=== PATIENT | female | born 1980 | race Caucasian/White ===

== ENCOUNTER 2016-03-02 15:16 | Emergency (ER) | payer OTHER ==
[2016-03-02] MEDS ORDERED: NS 0.9% 1000 ML* 1,000 ML IV ONE (17:15)
[2016-03-02 17:25] LABS: Hematocrit 41 % (35-47); Hemoglobin 13.7 g/dl (12.0-16.0); Mean Corpuscular HGB Conc 34 g/dl (31-36); Mean Corpuscular Hemoglobin 33 pg (27-31); Mean Corpuscular Volume 97 fL (80-97); Mean Platelet Volume 9 um3 (7.4-10.4); Red Blood Count 4.19 10^6/ul (4.0-5.4); Red Cell Distribution Width 13 % (10.5-15); White Blood Count 6.8 10^3/ul (3.5-10.8)
[2016-03-02 17:30] LABS: Urine Bacteria 1+ (Absent); Urine Bilirubin Negative (Negative); Urine Glucose Negative (Negative); Urine Nitrite Negative (Negative)
[2016-03-02 17:41] LABS: ALT 8 U/L (7-52); AST 10 U/L (13-39); Albumin 3.8 g/dL (3.2-5.2); Alkaline Phosphatase 48 U/L (34-104); Anion Gap 3 mmol/L (2-11); BUN/Creatinine Ratio 13.5 (8-20); Blood Urea Nitrogen 10 mg/dL (6-24); C Reactive Protein < 1.00 mg/L (< 5.00); CO2 Carbon Dioxide 26 mmol/L (22-32); Calcium 9.3 mg/dL (8.6-10.3); Chloride 108 mmol/L (101-111); EGFR African American 114.2 (>60); EGFR Non-African American 88.8 (>60); Globulin 2.5 g/dL (2-4); Glucose 103 mg/dL (70-100); Lipase 12 U/L (11.0-82.0); Potassium 3.8 mmol/L (3.5-5.0); Sodium 137 mmol/L (133-145); Total Protein 6.3 g/dL (6.4-8.9)
--- NOTE | 2016-03-02 18:24 | RAD ---
Indication: 6 days RIGHT lower quadrant pain with worsening. Post hysterectomy. Comparison: September 15, 2015 ultrasound Technique: Transvaginal pelvic ultrasound. Report: Post hysterectomy. Negative for free fluid. 3.0 x 2.0 x 2.8 cm RIGHT ovary with documented marginal vascular flow is remarkable for a unilocular 2.6 x 2.0 x 2.7 cm anechoic cyst without complex features consistent with a follicular cyst. 2.7 x 1.3 x 2.1 cm LEFT ovary with documented vascular flow is remarkable for small follicles and a dominant 1.3 cm follicle. No suspicious extra ovarian adnexal region lesions evident. IMPRESSION: Simple appearing follicular cyst of the RIGHT ovary measuring up to 2.7 cm new compared with the prior exam. Vascular flow documented to both ovaries.
[2016-03-02] MEDS ORDERED: Morphine INJ* 4 MG/ML 1 ML CARPUJECT IV ONE (18:41)
[2016-03-02] MEDS ORDERED: Ondansetron INJ* 2 MG/ML VIAL IV ONE (18:42)
--- NOTE | 2016-03-02 18:52 | ED ---
Alex Fischer Billy, scribed for Reji Castellanos MD on 03/02/16 at 1713 . Abdominal Pain/Female - HPI Summary HPI Summary: Patient is a 35 year-old female coming to [facility] presenting with constant lower abdominal cramping for 6 days. She also reports N/V, but she states that she "does not deal with pain well," and that her N/V is secondary to the "pain itself." She denies any diarrhea or constipation. She has had similar symptoms in the past, which have been related to her ovarian cysts. She takes oxycodone for scoliosis, but these pain medications have not improved her abdominal pain. Severity 710. She denies any other complaints at this time. - History of Current Complaint Chief Complaint: EDAbdPain Stated Complaint: LOWER ABD CRAMPING Time Seen by Provider: 03/02/16 17:09 Hx Obtained From: Patient Hx Last Menstrual Period: Jan 2005 Onset/Duration: Gradual Onset, Lasting Days, Still Present Timing: Constant Severity Initially: Moderate Severity Currently: Moderate Pain Intensity: 7 Pain Scale Used: 0-10 Numeric Location: Discrete At: RLQ, Discrete At: LLQ Radiates: No Character: Cramping Aggravating Factor(s): Nothing Alleviating Factor(s): Nothing Associated Signs and Symptoms: Positive: Nausea, Vomiting. Negative: Constipation, Diarrhea Allergies/Adverse Reactions: Allergies Allergy/AdvReac Type Severity Reaction Status Date / Time Aspirin Allergy Severe Airway Verified 11/04/14 15:40 Obstruction Latex Allergy Severe PER PT Verified 11/04/14 15:40 ANAPHYLACTIC WITH LATEX GLOVE Tramadol Allergy Severe SOB, hives Verified 11/04/14 15:40 Naproxen Allergy Intermediate Hives Verified 11/04/14 15:40 Bees Allergy Severe Airway Uncoded 11/04/14 15:40 Obstruction PMH/Surg Hx/FS Hx/Imm Hx Endocrine/Hematology History: Reports: Hx Anemia Denies: Hx Diabetes, Hx Thyroid Disease Cardiovascular History: Denies: Hx Congestive Heart Failure, Hx Hypertension, Hx Pacemaker/ICD Respiratory History: Reports: Hx Pneumonia Denies: Hx Asthma, Hx Chronic Obstructive Pulmonary Disease (COPD) GI History: Denies: Hx Ulcer, Other GI Disorders History: Reports: Hx Kidney Infection, Hx Kidney Stones Denies: Hx Renal Disease Musculoskeletal History: Reports: Hx Back Problems, Hx Bursitis, Hx Scoliosis Sensory History: Reports: Hx Contacts or Glasses Denies: Hx Hearing Aid Opthamlomology History: Reports: Hx Contacts or Glasses Neurological History: Reports: Hx Headaches, Hx Migraine Psychiatric History: Reports: Hx Depression Denies: Hx Panic Disorder - Surgical History Surgery Procedure, Year, and Place: Partial Hysterectomy 2004 for endometriosis. LEFT BREAT BIOPSY 10/30/12 - Immunization History Date of Tetanus Vaccine: Unk Date of Influenza Vaccine: None Infectious Disease History: No Infectious Disease History: Denies: Hx Hepatitis, Hx Human Immunodeficiency Virus (HIV), Traveled Outside the [place] in Last 30 Days - Family History Known Family History: Positive: Cardiac Disease - parents, Other - Breast cancer (aunt) - Social History Alcohol Use: Rare Hx Substance Use: No Substance Use Type: Reports: None Hx Tobacco Use: Yes Smoking Status (MU): Former Smoker - quit 02/19/2016 Type: Cigarettes Amount Used/How Often: 5 cigarettes/day Review of Systems Negative: Fever Positive: Abdominal Pain, Vomiting, Nausea. Negative: Diarrhea All Other Systems Reviewed And Are Negative: Yes Physical Exam - Summary Physical Exam Summary: VITAL SIGNS: Reviewed. GENERAL: Patient is a well developed and nourished female who is lying comfortable in the stretcher. Patient is not in any acute respiratory distress. HEAD AND FACE: Normocephalic and atraumatic. EYES: PERRLA, EOMI x 2, No injected conjunctiva. EARS: Hearing grossly intact. Ear canals and tympanic membranes are WNL. MOUTH: Oropharynx within normal limits. NECK: Supple, trachea is midline, no adenopathy, no JVD. CHEST: Symmetric, no tenderness at palpation LUNGS: Clear to auscultation bilaterally. No wheezing or crackles. CVS: RRR,, S1 and S2 present, no murmurs or gallops appreciated. ABDOMEN: Soft, RLQ and right pelvic tenderness. No signs of distention. Positive bowel sounds. No rebound no guarding, and no masses palpated. No abdominal bruit or pulsations. EXTREMITIES: FROM in all major joints, no edema, no cyanosis or clubbing. NEURO: Alert and oriented x 3. No acute neurological deficits. Speech is normal. SKIN: Dry and warm Triage Information Reviewed: Yes Vital Signs On Initial Exam: Initial Vitals Temp Pulse Resp BP Pulse Ox 98.9 F 87 20 107/61 100 03/02/16 15:40 03/02/16 15:40 03/02/16 15:40 03/02/16 15:40 03/02/16 15:40 Vital Signs Reviewed: Yes Diagnostics - Vital Signs Vital Signs Temp Pulse Resp BP Pulse Ox 03/02/16 15:40 98.9 F 87 20 107/61 100 - Laboratory Lab Results: Lab Results 03/02/16 03/02/16 03/02/16 Range/Units 17:12 17:12 17:12 WBC 6.8 (3.5-10.8) 10^3/ul RBC 4.19 (4.0-5.4) 10^6/ul Hgb 13.7 (12.0-16.0) g/dl Hct 41 (35-47) % MCV 97 (80-97) fL MCH 33 H (27-31) pg MCHC 34 (31-36) g/dl RDW 13 (10.5-15) % Plt Count 175 (150-450) 10^3/ul MPV 9 (7.4-10.4) um3 Neut % (Auto) 48.7 (38-83) % Lymph % (Auto) 41.2 (25-47) % [place] % (Auto) 7.2 (1-9) % Eos % (Auto) 1.3 (0-6) % Baso % (Auto) 1.6 (0-2) % Absolute Neuts (auto) 3.3 (1.5-7.7) 10^3/ul Absolute Lymphs (auto) 2.8 (1.0-4.8) 10^3/ul Absolute Monos (auto) 0.5 (0-0.8) 10^3/ul Absolute Eos (auto) 0.1 (0-0.6) 10^3/ul Absolute Basos (auto) 0.1 (0-0.2) 10^3/ul Absolute Nucleated RBC 0 10^3/ul Nucleated RBC % 0 Sodium 137 (133-145) mmol/L Potassium 3.8 (3.5-5.0) mmol/L Chloride 108 (101-111) mmol/L Carbon Dioxide 26 (22-32) mmol/L Anion Gap 3 (2-11) mmol/L BUN 10 (6-24) mg/dL Creatinine 0.74 (0.51-0.95) mg/dL Est GFR ( Amer) 114.2 (>60) Est GFR (Non-Af Amer) 88.8 (>60) BUN/Creatinine Ratio 13.5 (8-20) Glucose 103 H (70-100) mg/dL Calcium 9.3 (8.6-10.3) mg/dL Total Bilirubin 0.40 (0.2-1.0) mg/dL AST 10 L (13-39) U/L ALT 8 (7-52) U/L Alkaline Phosphatase 48 (34-104) U/L C-Reactive Protein < 1.00 (< 5.00) mg/L Total Protein 6.3 L (6.4-8.9) g/dL Albumin 3.8 (3.2-5.2) g/dL Globulin 2.5 (2-4) g/dL Albumin/Globulin Ratio 1.5 (1-3) Lipase 12 (11.0-82.0) U/L Urine Color Yellow Urine Appearance Cloudy Urine pH 6.0 (5-9) Ur Specific [place] 1.010 (1.010-1.030) Urine Protein Negative (Negative) Urine Ketones Negative (Negative) Urine Blood 1+ H (Negative) Urine Nitrate Negative (Negative) Urine Bilirubin Negative (Negative) Urine Urobilinogen Negative (Negative) Ur Leukocyte Esterase Negative (Negative) Urine WBC (Auto) Absent (Absent) Urine RBC (Auto) 1+(3-5/hpf) H (Absent) Ur Squamous Epith Cells Present H (Absent) Urine Bacteria 1+ H (Absent) Urine Glucose Negative (Negative) Result Diagrams: 03/02/16 17:12 03/02/16 17:12 Lab Statement: Any lab studies that have been ordered have been reviewed, and results considered in the medical decision making process. - Ultrasound No standard instances Ultrasound Interpretation Completed By: Radiologist - Transvaginal US: Simple appearing follicular cyst of the RIGHT ovary measuring up to 2.7 cm new compared with the prior exam. Vascular flow documented to both ovaries. Re-Evaluation - Re-Evaluation First Eval Re-Evaluation Time: 18:49 Change: Improved Abdominal Pain Fem Course/Dx - Course Course Of Treatment: Patient is a 35 year-old female coming to [facility] presenting with constant lower abdominal cramping for 6 days. She also reports N/V, but she states that she "does not deal with pain well," and that her N/V is secondary to the "pain itself." She denies any diarrhea or constipation. She has had similar symptoms in the past, which have been related to her ovarian cysts. She takes oxycodone for scoliosis, but these pain medications have not improved her abdominal pain. Severity 7/10. She denies any other complaints at this time.Bloodwork WNL. Pelvic US shows right ovarian cyst approximately 2.7 cm. In the ED course, she was given IV fluids, Zofran, and morphine for the pain. Patient declined a pelvic exam. After medication, she is feeling better and will be discharged home to follow up with PCP. She will be discharged with pain medications. - Diagnoses Differential Diagnosis: Positive: Diverticulitis, Ovarian Cyst, Renal Colic Provider Diagnoses: Ovarian cyst Discharge - Discharge Plan Condition: Stable Disposition: HOME Prescriptions: oxyCODONE/Acetamin 5/325 MG* [Percocet 5/325 TAB*] 1 tab PO Q6H PRN #10 tab MDD max 4 tabs / day PRN Reason: Pain Patient Education Materials: Ovarian Cyst (ED) Referrals: Magy Moncada MD [Primary Care Provider] - The documentation as recorded by the Alex mac Billy accurately reflects the service I personally performed and the decisions made by me, Reji Castellanos MD.
[2016-03-02 19:04] VITALS: BP 118/60
== END 2016-03-02 19:03 | disposition home or self-care (01) ==
LOC: ED 15:16
DX: N83.209 Unspecified ovarian cyst, unspecified side (principal); D64.9 Anemia, unspecified; F32.9 Major depressive disorder, single episode, unspecified; Z87.891 Personal history of nicotine dependence; M41.9 Scoliosis, unspecified
CPT/HCPCS: 36415; 76830; 80053; 81003; 81015; 83690; 85025; 86140; 87086; 96360; 96365; 96374; 96375; 99282; J2270; J2405

== ENCOUNTER 2017-04-01 12:47 | Emergency (ER) | payer SELFPAY ==
[2017-04-01 13:40] VITALS: BP 93/50
--- NOTE | 2017-04-01 14:54 | UC ---
Ear Complaint HPI - HPI Summary HPI Summary: Pt presents with left ear pain that began yesterday. She tells me that she has a history of cerumen impaction in her ears, but this feels different. Decreased hearing, mild drainage, pain with inserting q tip. Today started with a sore throat and thinks she felt body aches. Denies fever, chills, SOB, chest pain, abdominal pain, n/v/d/c. - History of Current Complaint Chief Complaint: UCGeneralIllness Stated Complaint: EAR PAIN SORE THROAT Time Seen by Provider: 04/01/17 14:54 Hx Obtained From: Patient Hx Last Menstrual Period: Jan 2005 Severity Initially: Moderate Severity Currently: Moderate Pain Intensity: 8 Pain Scale Used: 0-10 Numeric - Allergies/Home Medications Allergies/Adverse Reactions: Allergies Allergy/AdvReac Type Severity Reaction Status Date / Time MS Aspirin [Aspirin] Allergy Severe Airway Verified 04/01/17 13:40 Obstruction MS Latex [Latex] Allergy Severe PER PT Verified 04/01/17 13:40 ANAPHYLACTIC WITH LATEX GLOVE MS Tramadol [Tramadol] Allergy Severe SOB, hives Verified 04/01/17 13:40 MS Naproxen [Naproxen] Allergy Intermediate Hives Verified 04/01/17 13:40 Bees Allergy Severe Airway Uncoded 04/01/17 13:40 Obstruction PMH/Surg Hx/FS Hx/Imm Hx Previously Healthy: Yes - Surgical History Surgical History: Yes Surgery Procedure, Year, and Place: Partial Hysterectomy 2004 for endometriosis. LEFT BREAT BIOPSY 10/30/12, TUBAL - Family History Known Family History: Positive: Unknown, Cardiac Disease - parents, Other - Breast cancer (aunt) - Social History Lives: With Family Alcohol Use: Rare Substance Use Type: None Smoking Status (MU): Light Every Day Tobacco Smoker Type: Cigarettes Amount Used/How Often: 5 cigarettes/day Household Exposure Type: Cigarettes - Immunization History Most Recent Influenza Vaccination: 2013 Most Recent Tetanus Shot: within 10 yrs. Most Recent Pneumonia Vaccination: never received Review of Systems Constitutional: Negative Skin: Negative Eyes: Negative ENT: Ear Ache Respiratory: Negative Cardiovascular: Negative Gastrointestinal: Negative Musculoskeletal: Negative Neurological: Negative Psychological: Negative All Other Systems Reviewed And Are Negative: Yes Physical Exam Triage Information Reviewed: Yes Appearance: Well-Appearing, No Pain Distress, Well-Nourished Vital Signs: Initial Vital Signs Temp 98.4 F 02/12/18 13:35 Pulse 74 04/01/17 13:35 Resp 16 04/01/17 13:35 BP 93/50 04/01/17 13:35 Pulse Ox 99 04/01/17 13:35 Vital Signs Reviewed: Yes Eyes: Positive: Conjunctiva Clear. Negative: Conjunctiva Inflamed, Discharge ENT: Positive: Hearing grossly normal, Pharynx normal, Pharyngeal erythema - Mild, TMs normal - Right, Uvula midline, Other - LEFT TM occluded by cerumen - after disimpaction, ear canal with mild edema and purulent white/yellow discharge. Pain with tragus and auricle manipulation. Negative: Nasal congestion, Nasal drainage, Tonsillar swelling, Tonsillar exudate, Hoarse voice , Sinus tenderness Neck: Positive: Supple, Nontender, No Lymphadenopathy Respiratory: Positive: Lungs clear, Normal breath sounds, No respiratory distress, No accessory muscle use Cardiovascular: Positive: RRR, No Murmur, Pulses Normal Neurological: Positive: Alert Psychological: Positive: Age Appropriate Behavior Skin: Negative: rashes Ear Complaint Course/Dx - Course Course Of Treatment: Otitis externa left - Differential Dx/Diagnosis Provider Diagnoses: Otitis externa left Discharge - Discharge Plan Condition: Stable Disposition: HOME Prescriptions: Neomyc/Polym/HC 1% OTIC SUSP* [Cortisporin Otic Susp 1%*] 3 drop LEFT EAR TID # 1 btl Patient Education Materials: Otitis Externa (DC) Referrals: Catarina Leon NP [Primary Care Provider] - Additional Instructions: If you develop a fever, shortness of breath, chest pain, new or worsening symptoms - please call your PCP or go to the ED.
[2017-04-01] MEDS ORDERED: Neomyc/Polym/HC 1% OTIC SUSP* **OTIC LEFT EAR ONE (15:49)
== END 2017-04-01 16:10 | disposition home or self-care (01) ==
LOC: UCEAST 12:47
DX: H60.92 Unspecified otitis externa, left ear (principal); J02.9 Acute pharyngitis, unspecified; Z90.711 Acquired absence of uterus with remaining cervical stump; Z88.5 Allergy status to narcotic agent; Z88.6 Allergy status to analgesic agent; Z91.030 Bee allergy status; Z91.040 Latex allergy status; F17.210 Nicotine dependence, cigarettes, uncomplicated
CPT/HCPCS: 87651; 99212; A9270-GY; G0463

== ENCOUNTER 2017-04-18 17:20 | Emergency (ER) | payer BC ==
[2017-04-18 17:37] VITALS: BP 98/64
[2017-04-18] MEDS ORDERED: Acetaminophen TAB* 325 MG PO ONE (17:49)
--- NOTE | 2017-04-18 18:02 | UC ---
Respiratory Complaint HPI - HPI Summary HPI Summary: 36 year old female here with cough, fever, myalgia and headache for two days. All symptoms started yesterday. Reports feeling of head heaviness. No n/v/d/ Her fiancee is flu positive. - History of Current Complaint Chief Complaint: UCRespiratory Stated Complaint: COUGH Time Seen by Provider: 04/18/17 17:38 Hx Obtained From: Patient Hx Last Menstrual Period: Jan 2005 Onset/Duration: Gradual Onset Timing: Constant Severity Initially: Mild Severity Currently: Mild Pain Intensity: 4 Character: Cough: Productive Aggravating Factors: Nothing Alleviating Factors: OTC Meds Associated Signs And Symptoms: Positive: Fever, Chills, URI, Nasal Congestion, Sinus Discomfort. Negative: Hoarseness - Allergies/Home Medications Allergies/Adverse Reactions: Allergies Allergy/AdvReac Type Severity Reaction Status Date / Time aspirin Allergy Severe Airway Verified 04/18/17 17:29 Obstruction latex Allergy Severe Anaphylatic Verified 04/18/17 17:29 Shock naproxen Allergy Severe Hives Verified 04/18/17 17:29 tramadol Allergy Severe Shortness Verified 04/18/17 17:29 of Breath Bees Allergy Severe Airway Uncoded 04/01/17 13:40 Obstruction PMH/Surg Hx/FS Hx/Imm Hx - Surgical History Surgical History: Yes Surgery Procedure, Year, and Place: Partial Hysterectomy 2004 for endometriosis , ovaries taken out in June 2016. LEFT BREAT BIOPSY 10/30/12, TUBAL - Family History Known Family History: Positive: Unknown, Cardiac Disease - parents, Other - Breast cancer (aunt) - Social History Alcohol Use: Rare Substance Use Type: None Smoking Status (MU): Light Every Day Tobacco Smoker Type: Cigarettes Amount Used/How Often: 5 cigarettes/day Household Exposure Type: Cigarettes - Immunization History Most Recent Influenza Vaccination: 2013 Most Recent Tetanus Shot: within 10 yrs. Most Recent Pneumonia Vaccination: never received Review of Systems Constitutional: Fever ENT: Nasal Discharge, Sinus Congestion Respiratory: Cough All Other Systems Reviewed And Are Negative: Yes Physical Exam Triage Information Reviewed: Yes Appearance: Well-Appearing, No Pain Distress Vital Signs: Initial Vital Signs Temp 37.1 C 04/18/17 17:31 Pulse 93 04/18/17 17:31 Resp 18 04/18/17 17:31 BP 98/64 04/18/17 17:31 Pulse Ox 100 04/18/17 17:31 Vital Signs Reviewed: Yes Eye Exam: Normal ENT: Positive: Pharyngeal erythema, Nasal congestion, Nasal drainage, Sinus tenderness. Negative: Tonsillar swelling, Tonsillar exudate Neck exam: Normal Respiratory Exam: Normal Cardiovascular Exam: Normal Abdominal Exam: Normal Skin Exam: Normal UC Diagnostic Evaluation - Laboratory O2 Sat by Pulse Oximetry: 100 Diagnostic Studies Comment: Influenza negative Respiratory Course/Dx - Differential Dx/Diagnosis Differential Diagnosis/HQI/PQRI: Influenza, Laryngitis, Sinusitis Provider Diagnoses: Upper respiratory infection Discharge - Discharge Plan Condition: Good Disposition: HOME Prescriptions: Benzonatate CAP* [Tessalon 100 MG CAP*] 100 mg PO TID PRN #10 cap PRN Reason: Cough Patient Education Materials: Viral Syndrome (ED) Referrals: Catarina Leon NP [Primary Care Provider] -
== END 2017-04-18 18:44 | disposition home or self-care (01) ==
LOC: UCEAST 17:20
DX: J06.9 Acute upper respiratory infection, unspecified (principal); Z88.5 Allergy status to narcotic agent; Z88.6 Allergy status to analgesic agent; Z91.030 Bee allergy status; Z91.040 Latex allergy status; F17.210 Nicotine dependence, cigarettes, uncomplicated
CPT/HCPCS: 87502; 99202; A9270-GY; G0463

== ENCOUNTER 2017-04-21 23:21 | Emergency (ER) | payer BC ==
[2017-04-21] MEDS ORDERED: NS 0.9% 1000 ML*IV.FLUID IV ONE (23:42)
[2017-04-21] MEDS ORDERED: Metoclopramide IV* 5 MG/ML 2 ML VIAL IV SLOW PU ONE (23:44)
[2017-04-21] MEDS ORDERED: Acetaminophen TAB* 325 MG PO ONE (23:44)
[2017-04-21] MEDS ORDERED: Ketorolac INJ* 30 MG/ML 1 ML VIAL IV PUSH ONE (23:44)
[2017-04-22 00:10] LABS: ABS Basophils 0 10^3/ul (0-0.2); ABS Eosinophils 0 10^3/ul (0-0.6); ABS Lymphocytes 1.7 10^3/ul (1.0-4.8); ABS Monocytes 0.5 10^3/ul (0-0.8); ABS Neutrophils 2.9 10^3/ul (1.5-7.7); ABS Nucleated RBC 0 10^3/ul; Eosinophil % 0.8 % (0-6); Hematocrit 38 % (35-47); Hemoglobin 13.3 g/dl (12.0-16.0); Lymphocyte % 33.5 % (25-47); Mean Corpuscular HGB Conc 35 g/dl (31-36); Mean Corpuscular Hemoglobin 34 pg (27-31); Mean Corpuscular Volume 96 fL (80-97); Mean Platelet Volume 9 um3 (7.4-10.4); Nucleated Red Blood Cells % 0; Platelet Count 152 10^3/ul (150-450); Red Blood Count 3.95 10^6/ul (4.0-5.4); Red Cell Distribution Width 13 % (10.5-15); White Blood Count 5.2 10^3/ul (3.5-10.8)
[2017-04-22] MEDS ORDERED: Oseltamivir CAP* 75 MG CAP PO ONE (00:14)
[2017-04-22 00:20] LABS: EGFR Non-African American 88.3 (>60)
[2017-04-22] MEDS ORDERED: Potassium Chlor TAB* 20 MEQ TAB.ER PO ONE (00:29)
--- NOTE | 2017-04-22 00:38 | ED ---
Nathan Fischer Gabriel, scribluna for David Arce MD on 04/21/17 at 2348 . Influenza-Like Illness - HPI Summary HPI Summary: This patient is a 36 year old F presenting to [facility] accompanied by her partner with a chief complaint of flu like illness since 04-18-17. The patient rates the pain 10/10 in severity. Patient reports RODRIGUEZ, lung pain, fever, and vomiting. Pt was seen at earlier this week and was diagnosed with a viral illness. - History of Current Complaint Chief Complaint: EDFluSymptoms Time Seen by Provider: 04/21/17 23:34 Hx Obtained From: Patient Onset/Duration: Lasting Days, Still Present Associated Signs & Symptoms: Fever, Headache, Vomiting - Allergy/Home Medications Allergies/Adverse Reactions: Allergies Allergy/AdvReac Type Severity Reaction Status Date / Time aspirin Allergy Severe Airway Verified 04/18/17 17:29 Obstruction latex Allergy Severe Anaphylatic Verified 04/18/17 17:29 Shock naproxen Allergy Severe Hives Verified 04/18/17 17:29 tramadol Allergy Severe Shortness Verified 04/18/17 17:29 of Breath Bees Allergy Severe Airway Uncoded 04/01/17 13:40 Obstruction PMH/Surg Hx/FS Hx/Imm Hx Endocrine/Hematology History: Reports: Hx Anemia Denies: Hx Diabetes, Hx Thyroid Disease Cardiovascular History: Denies: Hx Congestive Heart Failure, Hx Hypertension, Hx Pacemaker/ICD Respiratory History: Reports: Hx Pneumonia Denies: Hx Asthma, Hx Chronic Obstructive Pulmonary Disease (COPD) GI History: Denies: Hx Ulcer, Other GI Disorders History: Reports: Hx Kidney Infection, Hx Kidney Stones Denies: Hx Dialysis, Hx Renal Disease Musculoskeletal History: Reports: Hx Back Problems, Hx Bursitis, Hx Scoliosis Sensory History: Reports: Hx Contacts or Glasses Denies: Hx Hearing Aid Opthamlomology History: Reports: Hx Contacts or Glasses Neurological History: Reports: Hx Headaches, Hx Migraine Psychiatric History: Reports: Hx Depression, Hx Panic Disorder - Surgical History Surgery Procedure, Year, and Place: Partial Hysterectomy 2004 for endometriosis , ovaries taken out in June 2016. LEFT BREAT BIOPSY 10/30/12, TUBAL - Immunization History Date of Tetanus Vaccine: Unk Date of Influenza Vaccine: None Infectious Disease History: No Infectious Disease History: Denies: Hx Hepatitis, Hx Human Immunodeficiency Virus (HIV), Traveled Outside the [place] in Last 30 Days - Family History Known Family History: Positive: Cardiac Disease - parents, Other - Breast cancer (aunt) - Social History Lives: With Family Alcohol Use: Rare Hx Substance Use: No Substance Use Type: Reports: None Hx Tobacco Use: Yes Smoking Status (MU): Light Every Day Tobacco Smoker Type: Cigarettes Amount Used/How Often: 5 cigarettes/day Review of Systems Positive: Fever Positive: Other - lung pain Positive: Vomiting Positive: Headache All Other Systems Reviewed And Are Negative: Yes Physical Exam - Summary Physical Exam Summary: VITAL SIGNS: Reviewed. GENERAL: Patient is a well-developed and nourished female who is lying comfortable in the stretcher. Patient is not in any acute respiratory distress. HEAD AND FACE: No signs of trauma. No ecchymosis, hematomas or skull depressions. No sinus tenderness. EYES: PERRLA, EOMI x 2, No injected conjunctiva, no nystagmus. EARS: Hearing grossly intact. Ear canals and tympanic membranes are within normal limits. MOUTH: Oropharynx within normal limits. NECK: Supple, trachea is midline, no adenopathy, no JVD, no carotid bruit, no c- spine tenderness, neck with full ROM. CHEST: Symmetric, no tenderness at palpation LUNGS: Clear to auscultation bilaterally. No wheezing or crackles. CVS: Regular rate and rhythm, S1 and S2 present, no murmurs or gallops appreciated. ABDOMEN: Soft, non-tender. No signs of distention. No rebound no guarding, and no masses palpated. Bowel sounds are normal. EXTREMITIES: FROM in all major joints, no edema, no cyanosis or clubbing. NEURO: Alert and oriented x 3. No acute neurological deficits. Speech is normal and follows commands. SKIN: Dry and warm Triage Information Reviewed: Yes Vital Signs On Initial Exam: Initial Vitals Temp Pulse Resp BP Pulse Ox 101.5 F 102 18 97/56 98 04/21/17 23:25 04/21/17 23:25 04/21/17 23:25 04/21/17 23:25 04/21/17 23:25 Vital Signs Reviewed: Yes Diagnostics - Vital Signs Vital Signs Temp Pulse Resp BP Pulse Ox 04/21/17 23:25 101.5 F 102 18 97/56 98 - Laboratory Result Diagrams: 04/21/17 23:50 04/21/17 23:50 Lab Statement: Any lab studies that have been ordered have been reviewed, and results considered in the medical decision making process. Flu Symptom Course/Dx - Course Assessment/Plan: This patient is a 36 year old F presenting to [facility] accompanied by her partner with a chief complaint of flu like illness since . The patient rates the pain 10/10 in severity. Patient reports RODRIGUEZ, lung pain , fever, and vomiting. Pt was seen at earlier this week and was diagnosed with a viral illness. Pt was positive for influenza A. CXR reveals, no acute process. Test results with no significant abnormalities except for the positive flu swab. In the ED course the patient was given Tylenol, Reglan, Tamiflu, and IV fluids. Patient will be discharged with prescription for Tamiflu and follow up from Anjelica Restrepo PCP. The patient is agreeable with this plan. - Diagnoses Provider Diagnoses: Influenza A Discharge - Discharge Plan Condition: Stable Disposition: HOME Prescriptions: Oseltamivir CAP* [Tamiflu CAP*] 75 mg PO BID #10 cap Referrals: Catarina Leon NP [Primary Care Provider] - Additional Instructions: RETURN TO EMERGENCY DEPARTMENT FOR ANY NEW OR WORSENING SYMPTOMS The documentation as recorded by the Nathan mac Gabriel accurately reflects the service I personally performed and the decisions made by , David Arce MD.
[2017-04-22 01:29] VITALS: BP 91/54
--- NOTE | 2017-04-22 07:38 | RAD ---
HISTORY: Cough COMPARISONS: April 10, 2015 VIEWS: 2: frontal portable view of the chest at 12:13 AM FINDINGS: LINES AND TUBES: None. CARDIOMEDIASTINAL SILHOUETTE: The cardiomediastinal silhouette is normal for portable technique. PLEURA: The costophrenic angles are sharp. No pleural abnormalities are noted. LUNG PARENCHYMA: The lungs are clear. ABDOMEN: The upper abdomen is clear. There is no subphrenic gas. BONES AND SOFT TISSUES: There is mild scoliotic curvature of the spine. IMPRESSION: NO ACTIVE CARDIOPULMONARY DISEASE.
== END 2017-04-22 01:30 | disposition home or self-care (01) ==
LOC: ED 23:21
DX: J10.1 Influenza due to other identified influenza virus with other respiratory manifestations (principal); R50.9 Fever, unspecified; R51 Headache; R11.10 Vomiting, unspecified; F17.210 Nicotine dependence, cigarettes, uncomplicated
CPT/HCPCS: 36415; 71045; 80053; 83605; 84702; 85025; 86140; 87040; 87502; 99284; A9270-GY; J1885; J2765

== ENCOUNTER 2017-08-03 16:02 | Emergency (ER) | payer BC ==
--- NOTE | 2017-08-03 16:50 | UC ---
Lower Extremity/Ankle HPI - HPI Summary HPI Summary: 37 yo female presents with injury to right ankle. She tells me that two days ago she was walking her friend's dog. The dog was on a leash and wrapped around pt's ankles and then ran - pt fell to the ground and turned her right ankle. Sustained superficial lacerations/abrasions to left and right ankles from leash. Currently, left ankle is doing ok, but right ankle is swollen and painful. Has been ambulating without assistance, but does have pain and a limp. Denies fever, chills. - History of Current Complaint Stated Complaint: RIGHT ANKLE PAIN Time Seen by Provider: 08/03/17 16:49 Hx Obtained From: Patient Hx Last Menstrual Period: Jan 2005 Onset/Duration: Sudden Onset Severity Initially: Mild Severity Currently: Moderate Pain Intensity: 7 Pain Scale Used: 0-10 Numeric Aggravating Factor(s): Standing, Ambulation Alleviating Factor(s): Rest, Elevation Able to Bear Weight: Yes - Allergies/Home Medications Allergies/Adverse Reactions: Allergies Allergy/AdvReac Type Severity Reaction Status Date / Time aspirin Allergy Severe Airway Verified 08/03/17 17:09 Obstruction latex Allergy Severe Anaphylatic Verified 08/03/17 17:09 Shock naproxen Allergy Severe Hives Verified 08/03/17 17:09 tramadol Allergy Severe Shortness Verified 08/03/17 17:09 of Breath Bees Allergy Severe Airway Uncoded 04/01/17 13:40 Obstruction PMH/Surg Hx/FS Hx/Imm Hx - Additional Past Medical History Additional PMH: None Previously Healthy: Yes - Surgical History Surgical History: Yes Surgery Procedure, Year, and Place: Partial Hysterectomy 2004 for endometriosis , ovaries taken out in June 2016. LEFT BREAT BIOPSY 10/30/12, TUBAL - Family History Known Family History: Positive: Unknown, Cardiac Disease - parents, Other - Breast cancer (aunt) - Social History Occupation: Employed Full-time Lives: With Family Alcohol Use: Rare Substance Use Type: None Smoking Status (MU): Light Every Day Tobacco Smoker Type: Cigarettes Amount Used/How Often: 5 cigarettes/day Household Exposure Type: Cigarettes - Immunization History Most Recent Influenza Vaccination: 2013 Most Recent Tetanus Shot: within 10 yrs. Most Recent Pneumonia Vaccination: never received Review of Systems Constitutional: Negative Skin: Other - Abrasions bl ankles. Right ankle redness and swelling Respiratory: Negative Cardiovascular: Negative Neurovascular: Negative Musculoskeletal: Negative Neurological: Negative Psychological: Negative All Other Systems Reviewed And Are Negative: Yes Physical Exam - Summary Physical Exam Summary: GENERAL: NAD. WDWN. No pain distress. SKIN: Linear abrasions to left and right high-ankles. Right ankle with moderate erythema and edema. No drainage, bleeding, or tenderness. NECK: Supple. Nontender. No lymphadenopathy. CHEST: No accessory muscle use. Breathing comfortably and in no distress. CV: RRR. Without m/r/g. Pulses intact PT and DP. Brisk cap refill. MSK: Right ankle: Moderate erythema and edema about lateral malleolus. FROM - but with pain. Strength 5/5. Negative talar tilt. No increased laxity. NEURO: Alert. Sensations intact and symmetric B/L LEs PSYCH: Age appropriate behavior. Triage Information Reviewed: Yes Vital Signs: Vital Signs: Temp Pulse Resp BP Pulse Ox 98.7 F 84 18 112/71 98 08/03/17 17:00 08/03/17 17:00 08/03/17 17:00 08/03/17 17:00 08/03/17 17:00 Lower Extremity Course/Dx - Course Course Of Treatment: XR: IMPRESSION: NO ACUTE OSSEOUS INJURY. IF SYMPTOMS PERSIST, RECOMMEND REPEAT IMAGING. iSTOP: Reference #: [id number]. Cellulitis and ankle sprain. Rx for augmentin and short supply of norco for pain. RICE. CHELSEA wrap. Gel splint. Crutches. - Differential Dx/Diagnosis Provider Diagnoses: Right ankle cellulitis. Right ankle sprain Discharge - Sign-Out/Discharge Documenting (check all that apply): Discharge/Admit/Transfer - Discharge Plan Condition: Stable Disposition: HOME Prescriptions: Amoxicillin/Clavulanate TAB* [Augmentin TAB 875*] 875 mg PO BID #20 tab HYDROcodone/ACETAMIN 5-325 MG* [Gotha 5-325 TAB*] 1 tab PO BID #6 tab MDD 2 Patient Education Materials: Cellulitis (DC) Referrals: Catarina Leon NP [Primary Care Provider] - Additional Instructions: If you develop a fever, shortness of breath, chest pain, new or worsening symptoms - please call your PCP or go to the ED. 1) Rest, Ice, and Elevate your ankle as much as possible 2) Use the CHELSEA wrap, gel splint, and crutches as needed for comfort and pain relief - Billing Disposition and Condition Condition: STABLE Disposition: Home
[2017-08-03 17:09] VITALS: BP 112/71
--- NOTE | 2017-08-03 17:35 | RAD ---
HISTORY: PAin, right ankle pain, injury COMPARISONS: October 10, 2010 VIEWS: 3, Frontal, lateral, and oblique views of the right ankle FINDINGS: BONE DENSITY: Normal. BONES: There is no displaced fracture. JOINTS: There is no arthropathy. ALIGNMENT: There is no dislocation. SOFT TISSUES: Unremarkable. OTHER FINDINGS: None. IMPRESSION: NO ACUTE OSSEOUS INJURY. IF SYMPTOMS PERSIST, RECOMMEND REPEAT IMAGING.
== END 2017-08-03 18:11 | disposition home or self-care (01) ==
LOC: UCEAST 16:02
DX: L03.115 Cellulitis of right lower limb (principal); S93.401A Sprain of unspecified ligament of right ankle, initial encounter; W18.30XA Fall on same level, unspecified, initial encounter; Y93.K1 Activity, walking an animal; Y92.9 Unspecified place or not applicable; Z88.5 Allergy status to narcotic agent; Z88.6 Allergy status to analgesic agent; Z91.030 Bee allergy status; Z91.040 Latex allergy status; F17.210 Nicotine dependence, cigarettes, uncomplicated; Z82.49 Family history of ischemic heart disease and other diseases of the circulatory system; Z80.3 Family history of malignant neoplasm of breast
CPT/HCPCS: 99213; G0463

== ENCOUNTER 2018-07-21 11:14 | Emergency (ER) | payer SELFPAY ==
[2018-07-21 11:37] VITALS: BP 106/66
--- NOTE | 2018-07-21 11:49 | ED ---
Abdominal Pain/Female - HPI Summary HPI Summary: 38 yr old female with the complaint of right lower abdominal pain, onset yesterday, pain is 8/10, worse with walking and riding in a care. She had ETIENNE, BSO for endometriosis. No urinary symptoms. - History of Current Complaint Chief Complaint: UCAbdominalPain Stated Complaint: LOWER ABD PAIN Time Seen by Provider: 07/21/18 11:39 Hx Last Menstrual Period: Jan 2005 Pain Intensity: 8 Allergies/Adverse Reactions: Allergies Allergy/AdvReac Type Severity Reaction Status Date / Time aspirin Allergy Severe Airway Verified 07/21/18 11:37 Obstruction latex Allergy Severe Anaphylatic Verified 07/21/18 11:37 Shock naproxen Allergy Severe Hives Verified 07/21/18 11:37 tramadol Allergy Severe Shortness Verified 07/21/18 11:37 of Breath Bees Allergy Severe Airway Uncoded 07/21/18 11:37 Obstruction Home Medications: Home Medications Ibuprofen/Diphenhydramine Cit [Advil Pm Caplet] 1 tab PO ONCE PRN 07/21/18 [ History Confirmed 07/21/18] PMH/Surg Hx/FS Hx/Imm Hx Endocrine/Hematology History: Reports: Hx Anemia Denies: Hx Diabetes, Hx Thyroid Disease Cardiovascular History: Denies: Hx Congestive Heart Failure, Hx Hypertension, Hx Pacemaker/ICD Respiratory History: Reports: Hx Pneumonia Denies: Hx Asthma, Hx Chronic Obstructive Pulmonary Disease (COPD) GI History: Denies: Hx Ulcer, Other GI Disorders History: Reports: Hx Kidney Infection, Hx Kidney Stones Denies: Hx Dialysis, Hx Renal Disease Musculoskeletal History: Reports: Hx Back Problems, Hx Bursitis, Hx Scoliosis Sensory History: Reports: Hx Contacts or Glasses Denies: Hx Hearing Aid Opthamlomology History: Reports: Hx Contacts or Glasses Neurological History: Reports: Hx Headaches, Hx Migraine Psychiatric History: Reports: Hx Depression, Hx Panic Disorder - Surgical History Surgery Procedure, Year, and Place: Partial Hysterectomy 2004 for endometriosis , ovaries taken out in June 2016. LEFT BREAT BIOPSY 10/30/12, TUBAL - Immunization History Date of Tetanus Vaccine: Unk Date of Influenza Vaccine: None Infectious Disease History: No Infectious Disease History: Denies: Hx Hepatitis, Hx Human Immunodeficiency Virus (HIV), Traveled Outside the [place] in Last 30 Days - Family History Known Family History: Positive: Unknown, Cardiac Disease - parents, Other - Breast cancer (aunt) - Social History Alcohol Use: Occasionally Hx Substance Use: No Substance Use Type: Reports: None Hx Tobacco Use: Yes Smoking Status (MU): Light Every Day Tobacco Smoker Type: Cigarettes Amount Used/How Often: 1/2ppd Review of Systems Constitutional: Negative Positive: Abdominal Pain All Other Systems Reviewed And Are Negative: Yes Physical Exam Triage Information Reviewed: Yes Vital Signs On Initial Exam: Initial Vitals Temp Pulse Resp BP Pulse Ox 99 F 87 18 106/66 98 07/21/18 11:32 07/21/18 11:32 07/21/18 11:32 07/21/18 11:32 07/21/18 11:32 Vital Signs Reviewed: Yes Skin: Positive: Warm Head/Face: Positive: Normal Head/Face Inspection Eyes: Positive: EOMI, GREG ENT: Positive: Normal ENT inspection Neck: Positive: Nontender Respiratory/Lung Sounds: Positive: Clear to Auscultation, Breath Sounds Present Cardiovascular: Positive: RRR. Negative: Murmur Abdomen Description: Positive: Other: - tender in the right lower quadrant.. Negative: Distended Musculoskeletal: Positive: Strength/ROM Intact, Other - holds her right hip flexed position Neurological: Positive: Sensory/Motor Intact, Alert, Oriented to Person Place, Time, CN Intact II-III, Speech Normal Diagnostics - Vital Signs Vital Signs Temp Pulse Resp BP Pulse Ox 07/21/18 11:32 99 F 87 18 106/66 98 - Laboratory Lab Statement: Any lab studies that have been ordered have been reviewed, and results considered in the medical decision making process. Abdominal Pain Fem Course/Dx - Course Course Of Treatment: Case DW Dr Castellanos in ER at [facility]. Patient going by ambulance. - Diagnoses Provider Diagnoses: Right lower quadrant abdominal pain Discharge - Sign-Out/Discharge Documenting (check all that apply): Patient Departure All imaging exams completed and their final reports reviewed: No Studies - Discharge Plan Condition: Good Disposition: TRANS HIGHER LVL OF CARE FAC Referrals: Catarina Leon NP [Primary Care Provider] - - Billing Disposition and Condition Condition: GOOD Disposition: Trans Higher Lvl of Care Fac
== END 2018-07-21 12:05 | disposition short-term general hospital (02) ==
LOC: UCEAST 11:14
DX: R10.31 Right lower quadrant pain (principal); Z90.710 Acquired absence of both cervix and uterus; Z88.5 Allergy status to narcotic agent; Z88.6 Allergy status to analgesic agent; Z91.030 Bee allergy status; Z91.040 Latex allergy status; F17.210 Nicotine dependence, cigarettes, uncomplicated
CPT/HCPCS: 99213; G0463

== ENCOUNTER 2018-07-21 12:34 | Emergency (ER) | payer SELFPAY ==
[2018-07-21] MEDS ORDERED: Morphine 4 MG/ML VIAL (1 ml) 4 MG/ML VIAL IV ONE ×2 (12:44→15:14)
[2018-07-21] MEDS ORDERED: Ondansetron INJ* 2 MG/ML VIAL IV ONE (12:44)
--- NOTE | 2018-07-21 12:49 | ED ---
Abdominal Pain/Female - HPI Summary HPI Summary: This pt is a 38 y/o female presenting to [facility] via EMS from [facility] c/o right lower quadrant abd pain since yesterday. Additionally pt reports nausea and vomiting. She states she is unable to keep anything down. Currently she rates her pain 9/10 in severity. She reports her pain is worse now after bumps on the road on her way to the ED via EMS. Denies fever, diarrhea, chest pain, SOB. Pt admits to smoking 1/2 PPD and drinking occasional alcohol. Denies drug use. LMP: 2002. PMHx: hysterectomy in 2002 and oophorectomy in 2016. Pt had a tubal ligation after her second child. - History of Current Complaint Chief Complaint: EDAbdPain Stated Complaint: ABD PAIN PER EMS Time Seen by Provider: 07/21/18 12:41 Hx Obtained From: Patient Hx Last Menstrual Period: Jan 2005 Onset/Duration: Lasting Days - 1, Still Present Timing: Days - 1 Severity Currently: Severe Pain Intensity: 9 Pain Scale Used: 0-10 Numeric Location: Discrete At: RLQ Radiates: No Aggravating Factor(s): Movement Alleviating Factor(s): Nothing Associated Signs and Symptoms: Positive: Nausea, Vomiting. Negative: Fever, Diarrhea Allergies/Adverse Reactions: Allergies Allergy/AdvReac Type Severity Reaction Status Date / Time aspirin Allergy Severe Airway Verified 07/21/18 12:41 Obstruction latex Allergy Severe Anaphylatic Verified 07/21/18 12:41 Shock naproxen Allergy Severe Hives Verified 07/21/18 12:41 tramadol Allergy Severe Shortness Verified 07/21/18 12:41 of Breath Bees Allergy Severe Airway Uncoded 07/21/18 11:37 Obstruction PMH/Surg Hx/FS Hx/Imm Hx Endocrine/Hematology History: Reports: Hx Anemia Denies: Hx Diabetes, Hx Thyroid Disease Cardiovascular History: Denies: Hx Congestive Heart Failure, Hx Hypertension, Hx Pacemaker/ICD Respiratory History: Reports: Hx Pneumonia Denies: Hx Asthma, Hx Chronic Obstructive Pulmonary Disease (COPD) GI History: Denies: Hx Ulcer, Other GI Disorders History: Reports: Hx Kidney Infection, Hx Kidney Stones Denies: Hx Dialysis, Hx Renal Disease Musculoskeletal History: Reports: Hx Back Problems, Hx Bursitis, Hx Scoliosis Sensory History: Reports: Hx Contacts or Glasses Denies: Hx Hearing Aid Opthamlomology History: Reports: Hx Contacts or Glasses Neurological History: Reports: Hx Headaches, Hx Migraine Psychiatric History: Reports: Hx Depression, Hx Panic Disorder - Surgical History Surgery Procedure, Year, and Place: Partial Hysterectomy 2004 for endometriosis , ovaries taken out in June 2016. LEFT BREAT BIOPSY 10/30/12, TUBAL - Immunization History Date of Tetanus Vaccine: Unk Date of Influenza Vaccine: None Infectious Disease History: No Infectious Disease History: Denies: Hx Hepatitis, Hx Human Immunodeficiency Virus (HIV), Traveled Outside the [place] in Last 30 Days - Family History Known Family History: Positive: Cardiac Disease - parents, Hypertension, Other - Breast cancer (aunt) Family History: Mother: high cholesterol - Social History Alcohol Use: Occasionally Hx Substance Use: No Substance Use Type: Reports: None Hx Tobacco Use: Yes Smoking Status (MU): Light Every Day Tobacco Smoker Type: Cigarettes Amount Used/How Often: 1/2ppd Review of Systems Negative: Fever Negative: Chest Pain Negative: Shortness Of Breath Positive: Abdominal Pain, Vomiting, Nausea. Negative: Diarrhea All Other Systems Reviewed And Are Negative: Yes Physical Exam - Summary Physical Exam Summary: VITAL SIGNS: Reviewed. GENERAL: Patient is a well-developed and nourished female who is lying comfortable in the stretcher. Patient is not in any acute respiratory distress. HEAD AND FACE: Normocephalic and atraumatic. EYES: PERRLA, EOMI x 2, No injected conjunctiva. EARS: Hearing grossly intact. Ear canals and tympanic membranes are WNL. MOUTH: Oropharynx within normal limits. NECK: Supple, trachea is midline, no adenopathy, no JVD. CHEST: Symmetric, no tenderness at palpation LUNGS: Clear to auscultation bilaterally. No wheezing or crackles. CVS: RRR, S1 and S2 present, no murmurs or gallops appreciated. ABDOMEN: Soft, RLQ Tenderness. No signs of distention. Positive bowel sounds. No rebound no guarding, and no masses palpated. No abdominal bruit or pulsations. EXTREMITIES: FROM in all major joints, no edema, no cyanosis or clubbing. NEURO: Alert and oriented x 3. No acute neurological deficits. Speech is normal. SKIN: Dry and warm. Triage Information Reviewed: Yes Vital Signs On Initial Exam: Initial Vitals Temp Pulse Resp BP Pulse Ox 98.2 F 88 21 111/77 98 07/21/18 12:38 07/21/18 12:38 07/21/18 12:38 07/21/18 12:38 07/21/18 12:38 Vital Signs Reviewed: Yes Diagnostics - Vital Signs Vital Signs Temp Pulse Resp BP Pulse Ox 07/21/18 12:38 98.2 F 88 21 111/77 98 - Laboratory Result Diagrams: 07/21/18 12:23 07/21/18 12:23 Lab Statement: Any lab studies that have been ordered have been reviewed, and results considered in the medical decision making process. - CT Abdomen/Pelvis CT CT Interpretation Completed By: Radiologist Summary of CT Findings: IMPRESSION: Fatty liver. No acute CT pathology of the visualized abdomen and pelvis. Dr. Castellanos has reviewed this report. - EKG 12:56 Cardiac Rate: NL - at 78 bpm EKG Rhythm: Sinus Rhythm EKG Comparison: No Significant Change - similar to prior EKG on 06/04/14. Summary of EKG Findings: No ST elevations. Re-Evaluation - Re-Evaluation First Eval Re-Evaluation Time: 16:18 Comment: Reviewed lab and CT results with the pt. She will be discharged home. Abdominal Pain Fem Course/Dx - Course Course Of Treatment: This pt is a 38 y/o female presenting to [facility] via EMS c/o right lower quadrant abd pain since yesterday. Additionally pt reports nausea and vomiting. She states she is unable to keep anything down. Currently she rates her pain 9/10 in severity. She reports her pain is worse now after bumps on the road on her way to the ED. Denies fever, diarrhea, chest pain, SOB. Pt admits to smoking 1/2 PPD and occasional alcohol. Denies drug use. LMP: 2002. PMHx: hysterectomy in 2002 and oophorectomy in 2017. Pt had a tubal ligation after her second child. Past medical history significant for anxiety, depression, pneumonia and sepsis. Blood test results without any significant abnormality, urinalysis is negative for UTI. Abdominal and pelvic CT IMPRESSION : FATTY LIVER. NO ACUTE CT PATHOLOGY OF THE VISUALIZED ABDOMEN AND PELVIS. Since the blood work shows no acute abnormality, and abdominal pelvic CT is negative the patient will be discharged home with follow-up from her primary care physician. I offered the patient a pelvic exam and she declined. I discussed all the findings and test results with the patient. Patient was instructed to return to the emergency room immediately if any of the symptoms return worsens. Plan of care was discussed with the patient and understands and agrees. All questions were answered at patient satisfaction. There were no further complaints or concerns. Lung exam before discharge: CTA B/L. Good air exchange. No wheezing or crackles heard. CVS: S1 and S2 present. No murmurs appreciated. Patient is alert and oriented x 3. Patient is hemodynamically stable. Patient will be discharged home with follow up from her PCP in the next 2-3 days. - Diagnoses Provider Diagnoses: Lower abdominal pain Discharge - Sign-Out/Discharge Documenting (check all that apply): Patient Departure - Discharge home Patient Received Moderate/Deep Sedation with Procedure: No - Discharge Plan Condition: Stable Disposition: HOME Patient Education Materials: Abdominal Pain (ED) Referrals: Catarina Leon NP [Primary Care Provider] - Additional Instructions: FOLLOW UP WITH YOUR PRIMARY CARE PROVIDER IN 2-3 DAYS. RETURN TO THE EMERGENCY DEPARTMENT FOR ANY WORSENING OR NEW SYMPTOMS. - Attestation Statements Document Initiated by Ortegaibe: Yes Documenting Scribe: Rosa Zavaleta Provider For Whom Arvine is Documenting (Include Credential): Reji Castellanso MD Scribe Attestation: Rosa Fischer scribed for Reji Castellanos MD on 07/21/18 at 1700. Status of Scribe Document: Ready
[2018-07-21 13:10] LABS: ABS Eosinophils 0.1 10^3/ul (0-0.6); ABS Lymphocytes 2.6 10^3/ul (1.0-4.8); ABS Monocytes 0.3 10^3/ul (0-0.8); ABS Neutrophils 3.5 10^3/ul (1.5-7.7); Eosinophil % 1.3 %; Hematocrit 40 % (35-47); Hemoglobin 13.4 g/dL (12.0-16.0); Lymphocyte % 39.5 %; Mean Corpuscular HGB Conc 34 g/dL (31-36); Mean Corpuscular Hemoglobin 33 pg (27-31); Mean Corpuscular Volume 99 fL (80-97); Nucleated Red Blood Cells % 0.1; Platelet Count 194 10^3/uL (150-450); Red Blood Count 4.02 10^6 /uL (3.70-4.87); Red Cell Distribution Width 13 % (10.5-15); White Blood Count 6.5 10^3/uL (3.5-10.8)
[2018-07-21 13:19] LABS: Urine Appearance Clear; Urine Bacteria Absent (Absent); Urine Bilirubin Negative (Negative); Urine Blood 2+ (Negative); Urine Color Straw; Urine Glucose Negative (Negative); Urine Ketones Negative (Negative); Urine Nitrite Negative (Negative); Urine Protein Negative (Negative); Urine Red Blood Cell Trace(0-2/hpf) (Absent); Urine Specific Gravity 1.004 (1.010-1.030); Urine Squamous Epithelial Cell Present (Absent); Urine Urobilinogen Negative (Negative); Urine White Blood Cell Trace(0-5/hpf) (Absent)
[2018-07-21 13:34] LABS: ALT 9 U/L (7-52); AST 12 U/L (13-39); Albumin/Globulin Ratio 1.7 (1-3); Alkaline Phosphatase 71 U/L (34-104); Anion Gap 5 mmol/L (2-11); BUN/Creatinine Ratio 14.7 (8-20); Blood Urea Nitrogen 10 mg/dL (6-24); C Reactive Protein < 1.00 mg/L (<8.01); CO2 Carbon Dioxide 25 mmol/L (22-32); Calcium 9.1 mg/dL (8.6-10.3); Chloride 111 mmol/L (101-111); EGFR African American 116.6 (>60); EGFR Non-African American 96.3 (>60); Globulin 2.3 g/dL (2-4); Glucose 93 mg/dL (70-100); Potassium 3.8 mmol/L (3.5-5.0); Sodium 141 mmol/L (135-145); Total Protein 6.3 g/dL (6.4-8.9)
[2018-07-21] MEDS ORDERED: Iohexol 300* (CONTRAST) 10 ML SDV IV ONE (15:26)
[2018-07-21 17:03] VITALS: BP 94/65
== END 2018-07-21 17:05 | disposition home or self-care (01) ==
LOC: ED 12:34
DX: R10.31 Right lower quadrant pain (principal); K76.0 Fatty (change of) liver, not elsewhere classified; F32.9 Major depressive disorder, single episode, unspecified; F17.210 Nicotine dependence, cigarettes, uncomplicated; Z88.6 Allergy status to analgesic agent; Z91.040 Latex allergy status
CPT/HCPCS: 36415; 74177; 80053; 81003; 81015; 83605; 83690; 85025; 86140; 87086; 93005; 96374; 96375; 96376; 99283; J2270; J2405; Q9967

== ENCOUNTER 2018-12-04 09:53 | Emergency (ER) | payer SELFPAY ==
[2018-12-04 10:03] VITALS: BP 100/63
--- NOTE | 2018-12-04 10:24 | UC ---
Back Pain HPI - HPI Summary HPI Summary: Pt presents with c/o sudden onset of right side low back pain that began at work today. Pt denies injury. Pt states she was lifting and moving heavy objects over the weekend. Pt has a hx of scoliosis- unmanaged. Pt states taht the pain radiates to right side low back and to upper posterior thigh. Pt dneies loss of bowel or bladder control, denies numbness or tingling. - History of Current Complaint Chief Complaint: UCBackPain Stated Complaint: LOWER BACK PAIN Time Seen by Provider: 12/04/18 10:22 Hx Obtained From: Patient Hx Last Menstrual Period: Jan 2005 ?: No Onset/Duration: Sudden Onset, Still Present, Resolved - mostly resolved still residual pain. Timing: Constant Severity Initially: Moderate Severity Currently: Mild Pain Intensity: 8 Back Pain: Is Discrete @ - righ tlower back/upper buttocks, Radiates To - righ tposterior upper thig Character: Sharp, Dull, Aching, Stiffness Aggravating Factor(s): Movement, Lifting, Bending Alleviating Factor(s): Rest, Position Associated Signs And Symptoms: Positive: Weakness - resolved - Risk Factors AAA Risk Factors: Negative TAD Risk Factors: Negative Cauda Equina Risk Factors: Negative Epidural Abscess Risk Factors: Negative - Allergies/Home Medications Allergies/Adverse Reactions: Allergies Allergy/AdvReac Type Severity Reaction Status Date / Time aspirin Allergy Severe Airway Verified 12/04/18 09:57 Obstruction latex Allergy Severe Anaphylatic Verified 12/04/18 09:57 Shock naproxen Allergy Severe Hives Verified 12/04/18 09:57 tramadol Allergy Severe Shortness Verified 12/04/18 09:57 of Breath bee venom protein (honey bee) Allergy Airway Verified 12/04/18 09:57 Obstruction PMH/Surg Hx/FS Hx/Imm Hx Previously Healthy: Yes - Surgical History Surgical History: Yes Surgery Procedure, Year, and Place: Partial Hysterectomy 2004 for endometriosis , ovaries taken out in June 2016. LEFT BREAT BIOPSY 10/30/12, TUBAL - Family History Known Family History: Positive: Cardiac Disease - parents, Hypertension, Other - Breast cancer (aunt) Family History: Mother: high cholesterol - Social History Occupation: Employed Full-time Lives: With Family Alcohol Use: Occasionally Substance Use Type: None Smoking Status (MU): Light Every Day Tobacco Smoker Type: Cigarettes Amount Used/How Often: 1/2ppd Have You Smoked in the Last Year: Yes Household Exposure Type: Cigarettes - Immunization History Most Recent Influenza Vaccination: 2013 Most Recent Tetanus Shot: within 10 yrs. Most Recent Pneumonia Vaccination: never received Vaccination Up to Date: Yes Review of Systems All Other Systems Reviewed And Are Negative: Yes Constitutional: Positive: Negative Skin: Positive: Negative Eyes: Positive: Negative ENT: Positive: Negative Respiratory: Positive: Negative Cardiovascular: Positive: Negative Gastrointestinal: Positive: Negative Genitourinary: Positive: Negative Motor: Positive: Negative, Decreased ROM - pain with ROM Neurovascular: Positive: Negative Musculoskeletal: Positive: Negative, Arthralgia, Myalgia Neurological: Positive: Negative Psychological: Positive: Negative Is Patient Immunocompromised?: No Physical Exam Triage Information Reviewed: Yes Appearance: Well-Appearing, Pain Distress - with movement Vital Signs: Initial Vital Signs Temp 98.6 F 12/04/18 10:01 Pulse 84 12/04/18 10:01 Resp 15 12/04/18 10:01 BP 100/63 12/04/18 10:01 Pulse Ox 100 12/04/18 10:01 Vital Signs Reviewed: Yes Eye Exam: Normal ENT Exam: Normal Dental Exam: Normal Neck exam: Normal Respiratory: Positive: No respiratory distress Cardiovascular Exam: Normal Musculoskeletal Exam: Normal Musculoskeletal: Positive: Strength Intact, ROM Intact - pain right codi elow back wiht ROM, Other: - scoliosis apprectiated Neurological Exam: Normal Neurological: Positive: Alert, Muscle Tone Normal Psychological Exam: Normal Skin Exam: Normal Back Pain Course/Dx - Differential Dx/Diagnosis Differential Diagnosis/HQI/PQRI: Herniated Disc, Neoplasm, Sprain Provider Diagnosis: Sciatica, right side Discharge ED - Sign-Out/Discharge Documenting (check all that apply): Patient Departure All imaging exams completed and their final reports reviewed: No Studies - Discharge Plan Condition: Stable Disposition: HOME Prescriptions: Cyclobenzaprine TAB* [Flexeril 10 MG TAB*] 10 mg PO Q8H PRN #15 tab PRN Reason: Pain - Mild predniSONE TAB* [Deltasone 10 MG TAB*] 30 mg PO DAILY #12 tab Patient Education Materials: Sciatica (ED), Lower Back Exercises (ED) Forms: *Work Release Referrals: [facility] REFERRAL [Outside] - If Needed No Primary Care Phys,NOPCP [Primary Care Provider] - - Billing Disposition and Condition Condition: STABLE Disposition: Home
== END 2018-12-04 10:30 | disposition home or self-care (01) ==
LOC: UCEAST 09:53
DX: M54.31 Sciatica, right side (principal); M41.9 Scoliosis, unspecified; F17.210 Nicotine dependence, cigarettes, uncomplicated; Z91.030 Bee allergy status; Z88.5 Allergy status to narcotic agent; Z88.8 Allergy status to other drugs, medicaments and biological substances; Z91.040 Latex allergy status; Z88.6 Allergy status to analgesic agent
CPT/HCPCS: 99212; G0463

== ENCOUNTER 2019-02-12 16:28 | Emergency (ER) | payer SELFPAY ==
--- NOTE | 2019-02-12 17:37 | ED ---
Abdominal Pain/Female - HPI Summary HPI Summary: The patient is a 38 y/o F presenting to [facility] accompanied by male with a chief complaint of sudden onset umbilical pain last night around 1800. She reports that the pain initially began in the umbilical region but has since moved to the left side of the abdomen and into the left flank. She endorses nausea but denies any vomiting, changes in BMs, or dysuria. The cramping pain is currently rated 8/10 in severity. There are no aggravating or alleviating factors. She has not taken any medications to treat the pain prior to arrival. She states a similar episode a few months ago, but results were negative for anything acute at the time. PMHx: anemia, kidney infection, kidney stones, back problems. Light every day smoker, occasional EtOH, no substance use. Medications reviewed. Allergies noted. - History of Current Complaint Chief Complaint: EDAbdPain Stated Complaint: LT SIDE OF BODY CRAMPING PER PT Time Seen by Provider: 02/12/19 17:18 Hx Obtained From: Patient Hx Last Menstrual Period: Jan 2005 Onset/Duration: Lasting Hours, Still Present Timing: Constant Severity Initially: Moderate Severity Currently: Moderate Pain Intensity: 8 Pain Scale Used: 0-10 Numeric Location: Umbilical, Other - left side Radiates: Yes Radiates to: Flank - left Character: Cramping Aggravating Factor(s): Nothing Alleviating Factor(s): Nothing Associated Signs and Symptoms: Positive: Nausea. Negative: Urinary Symptoms, Vomiting, Other: - changes in BMs Allergies/Adverse Reactions: Allergies Allergy/AdvReac Type Severity Reaction Status Date / Time aspirin Allergy Severe Airway Verified 02/12/19 16:32 Obstruction latex Allergy Severe Anaphylatic Verified 02/12/19 16:32 Shock naproxen Allergy Severe Hives Verified 02/12/19 16:32 tramadol Allergy Severe Shortness Verified 02/12/19 16:32 of Breath bee venom protein (honey bee) Allergy Airway Verified 02/12/19 16:32 Obstruction PMH/Surg Hx/FS Hx/Imm Hx Endocrine/Hematology History: Reports: Hx Anemia Denies: Hx Diabetes, Hx Thyroid Disease Cardiovascular History: Denies: Hx Congestive Heart Failure, Hx Hypertension, Hx Pacemaker/ICD Respiratory History: Reports: Hx Pneumonia Denies: Hx Asthma, Hx Chronic Obstructive Pulmonary Disease (COPD) GI History: Denies: Hx Ulcer, Other GI Disorders History: Reports: Hx Kidney Infection, Hx Kidney Stones Denies: Hx Dialysis, Hx Renal Disease Musculoskeletal History: Reports: Hx Back Problems, Hx Bursitis, Hx Scoliosis Sensory History: Reports: Hx Contacts or Glasses Denies: Hx Hearing Aid Opthamlomology History: Reports: Hx Contacts or Glasses Neurological History: Reports: Hx Headaches, Hx Migraine Psychiatric History: Reports: Hx Depression, Hx Panic Disorder - Surgical History Surgical History: Yes Surgery Procedure, Year, and Place: Partial Hysterectomy 2004 for endometriosis , ovaries taken out in June 2016. LEFT BREAT BIOPSY 10/30/12, TUBAL - Immunization History Date of Tetanus Vaccine: Unk Date of Influenza Vaccine: None Infectious Disease History: No Infectious Disease History: Denies: Hx Hepatitis, Hx Human Immunodeficiency Virus (HIV), Traveled Outside the [place] in Last 30 Days - Family History Known Family History: Positive: Cardiac Disease - parents, Hypertension, Other - Breast cancer (aunt) Family History: Mother: high cholesterol - Social History Alcohol Use: Occasionally Hx Substance Use: No Substance Use Type: Reports: None Hx Tobacco Use: Yes Smoking Status (MU): Light Every Day Tobacco Smoker Type: Cigarettes Amount Used/How Often: 1/2ppd Have You Smoked in the Last Year: Yes Review of Systems Positive: Abdominal Pain - umbilical moved to left side, Nausea. Negative: Vomiting, Other - changes in BMs Positive: flank pain - left. Negative: dysuria All Other Systems Reviewed And Are Negative: Yes Physical Exam - Summary Physical Exam Summary: Appearance: The patient is well-nourished in no acute distress and in no acute pain. Skin: The skin is warm and dry, and skin color reflects adequate perfusion. HEENT: The head is normocephalic and atraumatic. The pupils are equal and reactive. The conjunctivae are clear and without drainage. Nares are patent and without drainage. Mouth reveals moist mucous membranes, and the throat is without erythema and exudate. The external ears are intact. The ear canals are patent and without drainage. The tympanic membranes are intact. Neck: The neck is supple with full range of motion and non-tender. There are no carotid bruits. There is no neck vein distension. Respiratory: Chest is non-tender. Lungs are clear to auscultation and breath sounds are symmetrical and equal. Cardiovascular: Heart is regular rate and rhythm. There is no murmur or rub auscultated. There is no peripheral edema and pulses are symmetrical and equal. Abdomen: The abdomen is soft and non-tender. There are normal bowel sounds heard in all four quadrants and there is no organomegaly palpated. Musculoskeletal: There is no back tenderness noted. Extremities are non-tender with full range of motion. There is good capillary refill. There is no peripheral edema or calf tenderness elicited. Neurological: Patient is alert and oriented to person, place and time. The patient has symmetrical motor strength in all four extremities. Cranial nerves are grossly intact. Deep tendon reflexes are symmetrical and equal in all four extremities. Psychiatric: The patient has an appropriate affect and does not exhibit any anxiety or depression. Triage Information Reviewed: Yes Vital Signs On Initial Exam: Initial Vitals Temp Pulse Resp BP Pulse Ox 98.1 F 93 17 118/82 98 02/12/19 16:29 02/12/19 16:29 02/12/19 16:29 02/12/19 16:29 02/12/19 16:29 Vital Signs Reviewed: Yes Procedures - Sedation Patient Received Moderate/Deep Sedation with Procedure: No Diagnostics - Vital Signs Vital Signs Temp Pulse Resp BP Pulse Ox 02/12/19 16:29 98.1 F 93 17 118/82 98 - Laboratory Result Diagrams: 02/12/19 17:42 02/12/19 17:42 Lab Statement: Any lab studies that have been ordered have been reviewed, and results considered in the medical decision making process. - CT Abd/Pel CT CT Interpretation Completed By: Radiologist Summary of CT Findings: Impression: 1. The appendix is not convincingly localized. No inflammatory change seen around the cecum. This study has not completely excluded appendicitis. 2. No other acute disease seen on nonenhanced study. As Above. ED physician has reviewed this report. Re-Evaluation - Re-Evaluation First Eval Re-Evaluation Time: 20:15 Change: Unchanged Comment: Patient still in pain; we will order a CT. Second Eval Re-Evaluation Time: 21:55 Comment: We discussed results and plan for discharge. Abdominal Pain Fem Course/Dx - Course Course Of Treatment: She presented with abdominal pain. She was nontoxic in appearance with stable vitals and only mild tenderness in the left lower quadrant and midline suprapubic. Labs are unremarkable but she required pain medication a couple of times therefore CT scan was obtained which was also unremarkable. I recommended symptomatic treatment - Diagnoses Provider Diagnoses: Abdominal pain Discharge ED - Sign-Out/Discharge Documenting (check all that apply): Patient Departure - Patient will be discharged home. - Discharge Plan Condition: Stable Disposition: HOME Prescriptions: HYDROcodone/ACETAMIN 5-325 MG* [[place] 5-325 TAB*] 1 tab PO Q6H PRN #20 tab MDD 4 PRN Reason: Pain Patient Education Materials: Acute Abdominal Pain (DC) Referrals: [facility] [Outside] - 3 Days Additional Instructions: Please take medications as prescribed. Follow up with your primary care provider in 2-3 days. Return to the emergency department for any new or worsening symptoms. - Billing Disposition and Condition Condition: STABLE Disposition: Home - Attestation Statements Document Initiated by Pete: Yes Documenting Scribe: Damaris Macario Provider For Whom Pete is Documenting (Include Credential): Dr. Yazan Vaz MD Scribe Attestation: Damaris Fischer scribed for Dr. Yazan Vaz MD on 02/12/19 at 2206. Scribe Documentation Reviewed: Yes Provider Attestation: The documentation as recorded by the Damaris mac accurately reflects the service I personally performed and the decisions made by me, Dr. Yazan Vaz MD Status of [place] Document: Viewed
[2019-02-12] MEDS: HYDROcodone/ACETAMIN 5-325 MG* 1 TAB PO ONE ×2 (17:42→18:51)
[2019-02-12 18:01] LABS: ABS Eosinophils 0.1 10^3/ul (0-0.6); ABS Lymphocytes 2.1 10^3/ul (1.0-4.8); ABS Monocytes 0.6 10^3/ul (0-0.8); ABS Neutrophils 2.1 10^3/ul (1.5-7.7); Eosinophil % 1.9 %; Hematocrit 42 % (35-47); Hemoglobin 14.5 g/dL (12.0-16.0); Lymphocyte % 42.1 %; Mean Corpuscular HGB Conc 35 g/dL (31-36); Mean Corpuscular Hemoglobin 34 pg (27-31); Mean Corpuscular Volume 98 fL (80-97); Mean Platelet Volume 8.9 fL (7.4-10.4); Nucleated Red Blood Cells % 0.4; Platelet Count 206 10^3/uL (150-450); Red Cell Distribution Width 13 % (10-15); White Blood Count 4.9 10^3/uL (3.5-10.8)
[2019-02-12 18:22] LABS: ALT 8 U/L (7-52); AST 12 U/L (13-39); Albumin 3.9 g/dL (3.2-5.2); Albumin/Globulin Ratio 1.5 (1-3); Alkaline Phosphatase 66 U/L (34-104); Anion Gap 4 mmol/L (2-11); BUN/Creatinine Ratio 15.1 (8-20); Blood Urea Nitrogen 11 mg/dL (6-24); C Reactive Protein 2.33 mg/L (<8.01); CO2 Carbon Dioxide 28 mmol/L (22-32); Calcium 8.7 mg/dL (8.6-10.3); Chloride 107 mmol/L (101-111); EGFR African American 107.4 (>60); EGFR Non-African American 88.8 (>60); Globulin 2.6 g/dL (2-4); Glucose 84 mg/dL (70-100); Potassium 3.5 mmol/L (3.5-5.0); Sodium 139 mmol/L (135-145); Total Protein 6.5 g/dL (6.4-8.9)
[2019-02-12 18:26] LABS: HCG Pregnancy 0.76 mIU/mL
[2019-02-12 20:09] LABS: Urine Appearance Cloudy; Urine Bilirubin Negative (Negative); Urine Blood 2+ (Negative); Urine Color Yellow; Urine Glucose Negative (Negative); Urine Ketones Trace (Negative); Urine Nitrite Negative (Negative); Urine Protein Negative (Negative); Urine Specific Gravity 1.019 (1.010-1.030); Urine Urobilinogen Negative (Negative)
[2019-02-12 20:14] LABS: Urine Bacteria Absent (Absent); Urine Red Blood Cell 1+(3-5/hpf) (Absent); Urine Squamous Epithelial Cell Present (Absent); Urine White Blood Cell 1+(6-10/hpf) (Absent)
[2019-02-12 22:35] VITALS: BP 105/67
== END 2019-02-12 22:34 | disposition home or self-care (01) ==
LOC: ED 16:28
DX: R10.9 Unspecified abdominal pain (principal); D64.9 Anemia, unspecified; F32.9 Major depressive disorder, single episode, unspecified; F41.0 Panic disorder [episodic paroxysmal anxiety]; F17.210 Nicotine dependence, cigarettes, uncomplicated; Z90.711 Acquired absence of uterus with remaining cervical stump; Z88.5 Allergy status to narcotic agent; Z88.8 Allergy status to other drugs, medicaments and biological substances; Z91.040 Latex allergy status
CPT/HCPCS: 36415; 74176; 80053; 81003; 81015; 83605; 83690; 84702; 85025; 86140; 87086; 99282

== ENCOUNTER 2019-04-19 12:27 | Emergency (ER) | payer SELFPAY ==
[2019-04-19] MEDS ORDERED: Lidocaine 2% VISCOUS* 15 ML UDC PO ONE (14:13)
[2019-04-19] MEDS ORDERED: Acetaminoph/Cod 120/12 mg LIQ* 5 ML UDC PO ONE (14:13)
[2019-04-19 15:03] LABS: Rapid Strep Molecular Positive (Negative)
[2019-04-19 15:05] LABS: Influenza A Molecular Negative (Negative); Influenza B Molecular Negative (Negative)
[2019-04-19 15:46] VITALS: BP 86/60
--- NOTE | 2019-04-19 16:45 | ED ---
Throat Pain/Nasal Congestion - HPI Summary HPI Summary: This patient is a 38-year-old female presenting to the ED with a 2 day history of sore throat and body aches. Patient denies any known sick contacts. She states she is having dysphasia and odynophagia. Decreased by mouth intake due to the pain. Pain is currently rated a 9/10. She denies any headache. Denies any maxillary sinus tenderness, however is having pain to the bilateral ears. Denies any drooling or muffled voice. Also having pain to the sides of the neck over her cervical lymph nodes. Denies any chest pain, shortness of breath , abdominal pain or weakness. She has taken Tylenol at home without relief of her symptoms. She denies any recent travel. - History of Current Complaint Chief Complaint: EDFluSymptoms Time Seen by Provider: 04/19/19 13:52 Hx Obtained From: Patient Onset/Duration: Sudden Onset Severity: Moderate Associated Signs And Symptoms: Positive: Dysphagia. Negative: Drooling, Wheezing, Hoarseness, Sinus Discomfort, Nasal Discharge - Epiglottits Risk Factors Epiglottis Risk Factors: Negative - Allergies/Home Medications Allergies/Adverse Reactions: Allergies Allergy/AdvReac Type Severity Reaction Status Date / Time aspirin Allergy Severe Airway Verified 04/19/19 12:33 Obstruction latex Allergy Severe Anaphylatic Verified 04/19/19 12:33 Shock naproxen Allergy Severe Hives Verified 04/19/19 12:33 tramadol Allergy Severe Shortness Verified 04/19/19 12:33 of Breath bee venom protein (honey bee) Allergy Airway Verified 04/19/19 12:33 Obstruction Home Medications: Home Medications Acetaminophen TAB* [Tylenol TAB*] 650 mg PO Q6HR PRN 10/15/18 [History Confirmed 02/12/19] HYDROcodone/ACETAMIN 5-325 MG* [[place] 5-325 TAB*] 1 tab PO Q6H PRN #20 tab MDD 4 02/12/19 [Rx] Acetaminop/Codeine 30 MG TAB* [Tylenol/Codeine 30 MG TAB*] 1 tab PO Q6H PRN #8 tab MDD 4 04/19/19 [Rx] Azithromycin 500 mg PO DAILY #5 tablet 04/19/19 [Rx] Lidocaine 2% VISCOUS* [Xylocaine 2% Viscous*] 15 ml SWISH SWAL Q4H PRN #180 btl 04/19/19 [Rx] PMH/Surg Hx/FS Hx/Imm Hx Previously Healthy: Yes Endocrine/Hematology History: Reports: Hx Anemia Denies: Hx Diabetes, Hx Thyroid Disease Cardiovascular History: Denies: Hx Congestive Heart Failure, Hx Hypertension, Hx Pacemaker/ICD Respiratory History: Reports: Hx Pneumonia Denies: Hx Asthma, Hx Chronic Obstructive Pulmonary Disease (COPD) GI History: Denies: Hx Ulcer, Other GI Disorders History: Reports: Hx Kidney Infection, Hx Kidney Stones Denies: Hx Dialysis, Hx Renal Disease Musculoskeletal History: Reports: Hx Back Problems, Hx Bursitis, Hx Scoliosis Sensory History: Reports: Hx Contacts or Glasses Denies: Hx Hearing Aid Opthamlomology History: Reports: Hx Contacts or Glasses Neurological History: Reports: Hx Headaches, Hx Migraine Psychiatric History: Reports: Hx Depression, Hx Panic Disorder - Surgical History Surgery Procedure, Year, and Place: Partial Hysterectomy 2004 for endometriosis , ovaries taken out in June 2016. LEFT BREAT BIOPSY 10/30/12, TUBAL - Immunization History Date of Tetanus Vaccine: Unk Date of Influenza Vaccine: None Hx Pertussis Vaccination: No Immunizations Up to Date: Yes Infectious Disease History: No Infectious Disease History: Denies: Hx Hepatitis, Hx Human Immunodeficiency Virus (HIV), Traveled Outside the [place] in Last 30 Days - Family History Known Family History: Positive: Cardiac Disease - parents, Hypertension, Other - Breast cancer (aunt) Family History: Mother: high cholesterol - Social History Occupation: Unemployed Lives: With Family Alcohol Use: Rare Hx Substance Use: No Substance Use Type: Reports: Excessive Caffeine Hx Tobacco Use: Yes Smoking Status (MU): Former Smoker Type: Cigarettes Amount Used/How Often: 1/2ppd Have You Smoked in the Last Year: Yes Review of Systems Negative: Fever, Chills, Fatigue, Skin Diaphoresis Positive: Sore Throat. Negative: Dental Pain, Ear Ache Negative: Palpitations, Chest Pain Negative: Shortness Of Breath, Cough Genitourinary: Negative Positive: no symptoms reported, see HPI Negative: Arthralgia, Myalgia Negative: Rash, Bruising Positive: Headache All Other Systems Reviewed And Are Negative: Yes Physical Exam Triage Information Reviewed: Yes Vital Signs On Initial Exam: Initial Vitals Temp Pulse Resp BP Pulse Ox 99.8 F 104 20 100/70 99 04/19/19 12:28 04/19/19 12:28 04/19/19 12:28 04/19/19 12:28 04/19/19 12:28 Vital Signs Reviewed: Yes Appearance: Positive: Well-Appearing, Well-Nourished Skin: Positive: Warm, Skin Color Reflects Adequate Perfusion Head/Face: Positive: Normal Head/Face Inspection Eyes: Positive: EOMI, GREG, Conjunctiva Clear ENT: Positive: Pharyngeal erythema, Tonsillar swelling, Uvula midline. Negative : Nasal congestion, Nasal drainage, Tonsillar exudate, Hoarse voice, Sinus tenderness Neck: Positive: Supple, No Lymphadenopathy Respiratory/Lung Sounds: Positive: Clear to Auscultation, Breath Sounds Present Cardiovascular: Positive: Pulses are Symmetrical in both Upper and Lower Extremities Musculoskeletal: Positive: Normal, Strength/ROM Intact Neurological: Positive: Speech Normal Psychiatric: Positive: Normal, Affect/Mood Appropriate AVPU Assessment: Alert Procedures - Sedation Patient Received Moderate/Deep Sedation with Procedure: No Diagnostics - Vital Signs Vital Signs Temp Pulse Resp BP Pulse Ox 04/19/19 15:43 99.9 F 97 16 86/60 95 04/19/19 12:28 99.8 F 104 20 100/70 99 - Laboratory Lab Results: Lab Results 04/19/19 04/19/19 Range/Units 14:40 14:40 Influenza A (Rapid) Negative (Negative) Influenza B (Rapid) Negative (Negative) Group A Strep Rapid Positive H (Negative) Lab Statement: Any lab studies that have been ordered have been reviewed, and results considered in the medical decision making process. EENT Course/Dx - Course Course Of Treatment: On physical examination, patient appears ill. She is tachycardic at 104, however afebrile. TMs without erythema, positive cone of light. Pharyngeal erythema throughout with no bilateral tonsillar exudates. No stridor, drooling, or muffled voice. Patient denies cough or shortness of breath. Denies any subjective fevers, however has been having intermittent chills. Patient states her symptoms of present 2 days. She denies any known sick contacts. A flu swab and strep swab were obtained. Strep swab is positive. Patient is given azithromycin 500 mg 5 days. She is also given Tylenol with Codeine for discomfort. Prescribed lidocaine.Sxs improved with medication and pt able to tolerate liquids. No airway compromise. - Differential Diagnoses Differential Diagnoses: Tonsilitis - Diagnoses Provider Diagnoses: Strep throat Discharge ED - Sign-Out/Discharge Documenting (check all that apply): Patient Departure - Discharge Plan Condition: Stable Disposition: HOME Prescriptions: Acetaminop/Codeine 30 MG TAB* [Tylenol/Codeine 30 MG TAB*] 1 tab PO Q6H PRN #8 tab MDD 4 PRN Reason: Pain - Moderate Azithromycin 500 mg PO DAILY #5 tablet Lidocaine 2% VISCOUS* [Xylocaine 2% Viscous*] 15 ml SWISH SWAL Q4H PRN #180 btl PRN Reason: Pain - Mild Patient Education Materials: Strep Throat (ED) Forms: *Work Release Referrals: No Primary Care Phys,NOPCP [Primary Care Provider] - Additional Instructions: Azithromycin 500mg once daily x 5 days - start immediately Tylenol with codeine up to four times daily for pain Lidocaine swish and swallow for throat pain Over the counter Cepacol also has lidocaine for throat discomfort How can I manage my symptoms? Use lozenges, ice, soft foods, or popsicles to soothe your throat. Drink juice, milk shakes, or soup if your throat is too sore to eat solid food. Drinking liquids can also help prevent dehydration. Gargle with salt water. Mix teaspoon salt in a 1 cup of warm water and gargle. This may help reduce swelling in your throat. Do not smoke. Nicotine and other chemicals in cigarettes and cigars can cause lung damage and make your symptoms worse. Ask your healthcare provider for information if you currently smoke and need help to quit. E-cigarettes or smokeless tobacco still contain nicotine. Talk to your healthcare provider before you use these products. How do I prevent the spread of strep throat? Wash your hands often. Use soap and water. Wash your hands after you use the bathroom, change a child's diapers, or sneeze. Wash your hands before you prepare or eat food. Do not share food or drinks. Replace your toothbrush after you have taken antibiotics for 24 hours. - Billing Disposition and Condition Condition: STABLE Disposition: Home - Attestation Statements Provider Attestation: I was available for consult. This patient was seen by the GABRIEL. The patient was not presented to, seen by, or examined by me. Ori Toledo MD
== END 2019-04-19 15:43 | disposition home or self-care (01) ==
LOC: ED 12:27
DX: J02.0 Streptococcal pharyngitis (principal); H92.03 Otalgia, bilateral; M79.10 Myalgia, unspecified site; R68.83 Chills (without fever); R00.0 Tachycardia, unspecified; Z88.5 Allergy status to narcotic agent; Z88.6 Allergy status to analgesic agent; Z91.030 Bee allergy status; Z91.040 Latex allergy status; Z87.891 Personal history of nicotine dependence
CPT/HCPCS: 87651; 99282; A9270-GY